=== PATIENT | female | born 1990 | race American Indian/Alaskan Native ===

== ENCOUNTER 2017-12-12 07:47 | Emergency (ER) | payer SELFPAY ==
[2017-12-12 08:04] VITALS: BP 124/78
--- NOTE | 2017-12-12 10:09 | Emergency Department Report ---
HPI - General Chief Complaint: Earache Time Seen by Provider: 12/12/17 10:05 - HPI HPI: patient with right ear pain for the past two days, low grade fever, pain radiates to her throat. no difficulty swallowing. ED Past Medical Hx - Past Medical History Previous Medical History?: Yes Hx Hypertension: No Hx Congestive Heart Failure: No Hx Diabetes: No Hx Deep Vein Thrombosis: No Hx Renal Disease: No Hx Sickle Cell Disease: No Hx Seizures: No Hx Asthma: No Hx COPD: No Hx HIV: No Additional medical history: VAGINAL DELIVERY X 1 - Surgical History Past Surgical History?: No - Social History Smoking Status: Current Every Day Smoker Substance Use Type: Non Opiate Pain - Medications Home Medications: Home Medications Medication Instructions Recorded Confirmed Last Taken Type Pnv with Ca,No.72/Iron/FA 1 tab PO DAILY 07/20/14 07/20/14 07/19/14 13:00 History [ Plus Tablet] 1 tab Cyclobenzaprine [Flexeril 10 MG 5 mg PO TID PRN #12 tablet 09/13/15 Unknown Rx TAB] Ibuprofen [Motrin 800 MG tab] 800 mg PO Q8HR PRN #30 tablet 09/13/15 Unknown Rx Amoxicillin [Amoxicillin TAB] 875 mg PO BID #14 tablet 12/12/17 Unknown Rx ED Review of Systems ROS: Stated complaint: EAR ACHE Other details as noted in HPI Constitutional: no symptoms reported ENT: ear pain Physical Exam - Physical Exam Vital Signs: Vital Signs 12/12/17 08:02 Temperature 98.6 F Pulse Rate 82 Respiratory 18 Rate Blood Pressure 124/78 O2 Sat by Pulse 100 Oximetry Physical Exam: Gen. alert and oriented 3 in no distress Head atraumatic normocephalic Eyes PERR LA EOMI ENT: Right Dull tympanic membrane, with surrounding erythema Chest regular rate and rhythm normal S1-S2 lungs clear bilaterally Abdomen soft nondistended Back no point tenderness paravertebral tenderness Neuro no focal deficit. Psych normal mood. ED Course Vital Signs 12/12/17 08:02 Temperature 98.6 F Pulse Rate 82 Respiratory 18 Rate Blood Pressure 124/78 O2 Sat by Pulse 100 Oximetry Critical care attestation.: If time is entered above; I have spent that time in minutes in the direct care of this critically ill patient, excluding procedure time. ED Disposition Clinical Impression: Otitis Qualifiers: Laterality: right Qualified Code(s): H66.91 - Otitis media, unspecified, right ear Disposition: DC-01 TO HOME OR SELFCARE Is pt being admited?: No Does the pt Need Aspirin: No Condition: Stable Prescriptions: Amoxicillin [Amoxicillin TAB] 875 mg PO BID #14 tablet Referrals: PRIMARY CARE,MD [Primary Care Provider] - 3-5 Days
== END 2017-12-12 10:16 | disposition home or self-care (01) ==
LOC: ED 07:47
DX: H66.91 Otitis media, unspecified, right ear (principal); F17.200 Nicotine dependence, unspecified, uncomplicated
CPT/HCPCS: 99282

== ENCOUNTER 2021-06-07 15:09 | Emergency (ER) | payer SELFPAY ==
--- NOTE | 2021-06-07 16:59 | Emergency Department Report ---
ED ENT HPI - General Chief complaint: Dental/Oral Stated complaint: RT TOOTH PAINS Time Seen by Provider: 06/07/21 16:20 Source: patient Mode of arrival: Ambulatory Limitations: No Limitations - History of Present Illness Initial comments: 30-year-old female presents to the ER today with complaints of severe right dental pain. Patient states that started last night. She states that she feels the pain in her right ear and also in her right upper jaw. She has a known bad tooth in her right upper jaw for a while but she has not followed up with a den tist for it. She does have an appointment scheduled sometime in June with a dentist, but the pain is severe and so she decided to come into the ER. She denies any apparent swelling, facial redness, fever, chills, difficulty swallowing, drooling, trismus or difficulty breathing or any additional symptoms at this time. MD complaint: tooth pain, ear pain -: Last night - Related Data Previous Rx's Medication Instructions Recorded Last Taken Type Amoxicillin/Potassium Clav 1 each PO BID #14 tablet 06/07/21 Unknown Rx [Augmentin 875-125 Tablet] Ketorolac [Toradol] 10 mg PO Q6H PRN #20 tablet 06/07/21 Unknown Rx traMADoL [Ultram] 50 mg PO Q4HR PRN #12 tablet 06/07/21 Unknown Rx Allergies Allergy/AdvReac Type Severity Reaction Status Date / Time No Known Allergies Allergy Unverified 06/07/21 15:55 ED Dental HPI - General Chief complaint: Dental/Oral Stated complaint: RT TOOTH PAINS Time Seen by Provider: 06/07/21 16:20 Source: patient Mode of arrival: Ambulatory Limitations: No Limitations - Related Data Previous Rx's Medication Instructions Recorded Last Taken Type Amoxicillin/Potassium Clav 1 each PO BID #14 tablet 06/07/21 Unknown Rx [Augmentin 875-125 Tablet] Ketorolac [Toradol] 10 mg PO Q6H PRN #20 tablet 06/07/21 Unknown Rx traMADoL [Ultram] 50 mg PO Q4HR PRN #12 tablet 06/07/21 Unknown Rx Allergies Allergy/AdvReac Type Severity Reaction Status Date / Time No Known Allergies Allergy Unverified 06/07/21 15:55 ED Review of Systems ROS: Stated complaint: RT TOOTH PAINS Other details as noted in HPI Comment: All other systems reviewed and negative Constitutional: denies: chills, fever Eyes: denies: eye pain, eye discharge, vision change ENT: ear pain, dental pain Respiratory: denies: cough, shortness of breath, SOB with exertion, SOB at rest, stridor, wheezing Cardiovascular: denies: chest pain, palpitations, dyspnea on exertion, edema, syncope, paroxysmal nocturnal dyspnea Gastrointestinal: denies: abdominal pain, nausea, diarrhea, constipation, hematemesis, melena, hematochezia Genitourinary: denies: urgency, dysuria, frequency, hematuria, discharge, abnormal menses, dyspareunia Musculoskeletal: denies: back pain, joint swelling, arthralgia Skin: denies: change in color, change in hair/nails, pruritus Neurological: headache. denies: numbness, paresthesias, confusion, abnormal gait, vertigo Psychiatric: denies: anxiety, depression, auditory hallucinations, visual hallucinations, homicidal thoughts, suicidal thoughts Hematological/Lymphatic: denies: easy bleeding, easy bruising, swollen glands ED Past Medical Hx - Past Medical History Hx Hypertension: No Hx Congestive Heart Failure: No Hx Diabetes: No Hx Deep Vein Thrombosis: No Hx Renal Disease: No Hx Sickle Cell Disease: No Hx Seizures: No Hx Asthma: No Hx COPD: No Hx HIV: No Additional medical history: VAGINAL DELIVERY X 1 - Social History Smoking Status: Current Every Day Smoker Substance Use Type: Non Opiate Pain - Medications Home Medications: Home Medications Medication Instructions Recorded Confirmed Last Taken Type Amoxicillin/Potassium Clav 1 each PO BID #14 tablet 06/07/21 Unknown Rx [Augmentin 875-125 Tablet] Ketorolac [Toradol] 10 mg PO Q6H PRN #20 tablet 06/07/21 Unknown Rx traMADoL [Ultram] 50 mg PO Q4HR PRN #12 tablet 06/07/21 Unknown Rx ED Physical Exam - General Limitations: No Limitations General appearance: alert, in distress (Patient appears uncomfortable and appears to be in pain.) - Head Head exam: Present: atraumatic, normocephalic, normal inspection - Eye Eye exam: Present: normal appearance, PERRL, EOMI Pupils: Present: normal accommodation - ENT ENT exam: Present: normal exam, mucous membranes moist, TM's normal bilaterally - Expanded ENT Exam Expanded TM/Canal exam: Erythema: Right TM, Left TM Mouth exam: Present: normal external inspection. Absent: drooling, trismus, muffled voice, tongue normal, tongue elevation, laceration Teeth exam: Present: dental caries 1 - Dental Tenderness, Other (Severe decay to the gum with mild gum swelling and tenderness to palpation) Throat exam: Positive: normal inspection. Negative: tonsillar erythema, tonsillomegaly, R peritonsillar mass, L peritonsillar mass - Neck Neck exam: Present: normal inspection, full ROM, lymphadenopathy (Anterior cervical). Absent: meningismus - Respiratory Respiratory exam: Present: normal lung sounds bilaterally. Absent: respiratory distress, wheezes, rales, rhonchi, stridor - Cardiovascular Cardiovascular Exam: Present: regular rate, normal rhythm, normal heart sounds - Neurological Exam Neurological exam: Present: alert, oriented X3, CN II-XII intact, normal gait - Psychiatric Psychiatric exam: Present: normal affect, normal mood - Skin Skin exam: Present: intact ED Course Vital Signs 06/07/21 15:56 Temperature 99.3 F Pulse Rate 74 Respiratory 18 Rate Blood Pressure 147/101 O2 Sat by Pulse 93 Oximetry Critical care attestation.: If time is entered above; I have spent that time in minutes in the direct care of this critically ill patient, excluding procedure time. ED Disposition Clinical Impression: Dentalgia, Otitis media Disposition: HOME / SELF CARE / HOMELESS Is pt being admited?: No Does the pt Need Aspirin: No Condition: Stable Instructions: Otitis Media, Adult, [id number], Dental Caries, Pediatric Additional Instructions: I recommend that you take the Ultram, and Toradol as prescribed for pain. Take the amoxicillin as prescribed. Follow-up with your dentist and keep your ai ointment. Follow-up with your PCP as well. Return to the ER if your symptoms changes or worsens in any way. Prescriptions: Amoxicillin/Potassium Clav [Augmentin 875-125 Tablet] 1 each PO BID #14 tablet Ketorolac [Toradol] 10 mg PO Q6H PRN #20 tablet PRN Reason: Pain traMADoL [Ultram] 50 mg PO Q4HR PRN #12 tablet PRN Reason: Pain Referrals: [facility] [Provider Group] - 3-5 Days Forms: Work/School Release Form(ED) Time of Disposition: 17:07
[2021-06-07 17:12] VITALS: BP 121/73
== END 2021-06-07 17:33 | disposition home or self-care (01) ==
LOC: ED 15:09
DX: H66.91 Otitis media, unspecified, right ear (principal); K08.89 Other specified disorders of teeth and supporting structures; F17.200 Nicotine dependence, unspecified, uncomplicated
CPT/HCPCS: 99281

== ENCOUNTER 2021-09-07 09:14 | Emergency (ER) | payer SELFPAY ==
--- NOTE | 2021-09-07 12:54 | Emergency Department Report ---
ED ENT HPI - General Chief complaint: Dental/Oral Stated complaint: FACIAL SWELLING Time Seen by Provider: 09/07/21 12:42 Source: patient Mode of arrival: Ambulatory Limitations: No Limitations - History of Present Illness Initial comments: Patient is a 30-year-old female presents emergency room complaints of right- sided facial swelling that began a week ago but worsened this morning when she woke up. She states that she knows that she has 4 bad teeth. She states that she was post to have a tooth extraction a few months ago but states that she did not have the money at the time. She states that she has some mild dental pain but mostly just has pain from her face being swollen. She denies any difficulty swallowing, difficulty breathing, fever, vomiting, chills. No past medical history. She denies any possibility of and states that she uses control. - Related Data Previous Rx's Medication Instructions Recorded Last Taken Type Amoxicillin/Potassium Clav 1 each PO BID #14 tablet 06/07/21 Unknown Rx [Augmentin 875-125 Tablet] Ketorolac [Toradol] 10 mg PO Q6H PRN #20 tablet 06/07/21 Unknown Rx traMADoL [Ultram] 50 mg PO Q4HR PRN #12 tablet 06/07/21 Unknown Rx Acetaminophen/Codeine [Tylenol 1 tab PO Q6H PRN #12 tab 09/07/21 Unknown Rx /Codeine # 3 tab] Clindamycin [Clindamycin CAP] 450 mg PO TID 7 Days #63 capsule 09/07/21 Unknown Rx Allergies Allergy/AdvReac Type Severity Reaction Status Date / Time naproxen AdvReac Swelling Verified 09/07/21 10:07 ED Dental HPI - General Chief complaint: Dental/Oral Stated complaint: FACIAL SWELLING Time Seen by Provider: 09/07/21 12:42 Source: patient Mode of arrival: Ambulatory Limitations: No Limitations - Related Data Previous Rx's Medication Instructions Recorded Last Taken Type Amoxicillin/Potassium Clav 1 each PO BID #14 tablet 06/07/21 Unknown Rx [Augmentin 875-125 Tablet] Ketorolac [Toradol] 10 mg PO Q6H PRN #20 tablet 06/07/21 Unknown Rx traMADoL [Ultram] 50 mg PO Q4HR PRN #12 tablet 06/07/21 Unknown Rx Acetaminophen/Codeine [Tylenol 1 tab PO Q6H PRN #12 tab 09/07/21 Unknown Rx /Codeine # 3 tab] Clindamycin [Clindamycin CAP] 450 mg PO TID 7 Days #63 capsule 09/07/21 Unknown Rx Allergies Allergy/AdvReac Type Severity Reaction Status Date / Time naproxen AdvReac Swelling Verified 09/07/21 10:07 ED Review of Systems ROS: Stated complaint: FACIAL SWELLING Other details as noted in HPI Comment: All other systems reviewed and negative ED Past Medical Hx - Past Medical History Hx Hypertension: No Hx Congestive Heart Failure: No Hx Diabetes: No Hx Deep Vein Thrombosis: No Hx Renal Disease: No Hx Sickle Cell Disease: No Hx Seizures: No Hx Asthma: No Hx COPD: No Hx HIV: No Additional medical history: VAGINAL DELIVERY X 1 - Social History Smoking Status: Current Every Day Smoker - Medications Home Medications: Home Medications Medication Instructions Recorded Confirmed Last Taken Type Amoxicillin/Potassium Clav 1 each PO BID #14 tablet 06/07/21 Unknown Rx [Augmentin 875-125 Tablet] Ketorolac [Toradol] 10 mg PO Q6H PRN #20 tablet 06/07/21 Unknown Rx traMADoL [Ultram] 50 mg PO Q4HR PRN #12 tablet 06/07/21 Unknown Rx Acetaminophen/Codeine [Tylenol 1 tab PO Q6H PRN #12 tab 09/07/21 Unknown Rx /Codeine # 3 tab] Clindamycin [Clindamycin CAP] 450 mg PO TID 7 Days #63 capsule 09/07/21 Unknown Rx ED Physical Exam - General Limitations: No Limitations General appearance: alert, in no apparent distress - Head Head exam: Present: atraumatic, normocephalic - Eye Eye exam: Present: normal appearance - ENT ENT exam: Present: mucous membranes moist, other (moderate right sided facial edema, uvula is midline, no uvular edema or deviation, no trismus, no tongue elevation, no muffled voice, no edema or ttp underneath the tongue) - Respiratory Respiratory exam: Present: normal lung sounds bilaterally. Absent: respiratory distress, wheezes, rales, rhonchi, stridor, chest wall tenderness, accessory muscle use, decreased breath sounds, prolonged expiratory - Cardiovascular Cardiovascular Exam: Present: regular rate, normal rhythm, normal heart sounds. Absent: systolic murmur, diastolic murmur, rubs, gallop - Neurological Exam Neurological exam: Present: alert, oriented X3 - Psychiatric Psychiatric exam: Present: normal affect, normal mood - Skin Skin exam: Present: warm, dry, intact ED Course Vital Signs 09/07/21 10:05 Temperature 98.4 F Pulse Rate 86 Respiratory 20 Rate Blood Pressure 148/106 [Left] O2 Sat by Pulse 100 Oximetry ED Medical Decision Making - Medical Decision Making Patient is a 30-year-old female presents emergency room complaints of right- sided facial swelling that began a week ago but worsened this morning when she woke up. She states that she knows that she has 4 bad teeth. She states that she was post to have a tooth extraction a few months ago but states that she did not have the money at the time. She states that she has some mild dental pain but mostly just has pain from her face being swollen. She denies any difficulty swallowing, difficulty breathing, fever, vomiting, chills. No past medical history. She denies any possibility of and states that she uses control. on exam: moderate right sided facial edema, uvula is midline, no uvular edema or deviation, no trismus, no tongue elevation, no muffled voice, no edema or ttp underneath the tongue. No signs of airway compromise on exam. Do not suspect Piyush's at this time. Examination appears consistent with dental abscess and facial cellulitis. Patient given prescription for medication. I discussed very strict return precautions in detail with patient. I discussed the importance of dental follow-up. Advised patient Please take medication as prescribed. Follow-up with a dentist. Return to emergency room immediately for any new or worsening symptoms including but not limited to worsening pain, worsening swelling, fever, difficulty swallowing, difficulty breathing, etc. Critical care attestation.: If time is entered above; I have spent that time in minutes in the direct care of this critically ill patient, excluding procedure time. ED Disposition Clinical Impression: Dental abscess, Facial cellulitis Disposition: HOME / SELF CARE / HOMELESS Is pt being admited?: No Does the pt Need Aspirin: No Condition: Stable Instructions: Cellulitis, Adult, Dental Abscess, [id number] Additional Instructions: Please take medication as prescribed. Follow-up with a dentist. Return to emergency room immediately for any new or worsening symptoms including but not limited to worsening pain, worsening swelling, fever, difficulty swallowing, difficulty breathing, etc. Prescriptions: Clindamycin [Clindamycin CAP] 450 mg PO TID 7 Days #63 capsule Acetaminophen/Codeine [Tylenol /Codeine # 3 tab] 1 tab PO Q6H PRN #12 tab PRN Reason: severe pain Referrals: a, dentist [Other] - 2-3 Days Time of Disposition: 12:53 Print Language: TURKISH
[2021-09-07 13:32] VITALS: BP 119/78
== END 2021-09-07 13:29 | disposition home or self-care (01) ==
LOC: ED 09:14
DX: K04.7 Periapical abscess without sinus (principal); L03.211 Cellulitis of face; F17.200 Nicotine dependence, unspecified, uncomplicated
CPT/HCPCS: 99282